=== PATIENT | female | born 1950 | race Caucasian/White ===

== ENCOUNTER 2018-11-22 01:18 | Emergency (ER) | payer MEDICARE ==
[~2018-11-22] VITALS: Ht 152.4 cm; Wt 90.7 kg
--- NOTE | 2018-11-22 01:47 | PHYS DOC ---
Past Medical History Past Medical History: CAD, CVA, Hypertension Past Surgical History: Coronary Bypass Surgery Alcohol Use: None Drug Use: None Adult General Chief Complaint Chief Complaint: SKIN PROBLEM HPI HPI Patient is a 68 year old [f__sex] who presents with [] Review of Systems Review of Systems Constitutional: Denies fever or chills [] Eyes: Denies change in visual acuity, redness, or eye pain [] HENT: Denies nasal congestion or sore throat [] Respiratory: Denies cough or shortness of breath [] Cardiovascular: No additional information not addressed in HPI [] GI: Denies abdominal pain, nausea, vomiting, bloody stools or diarrhea [] : Denies dysuria or hematuria [] Musculoskeletal: Denies back pain or joint pain [] Integument: Denies rash or skin lesions [] Neurologic: Denies headache, focal weakness or sensory changes [] Endocrine: Denies polyuria or polydipsia [] All other systems were reviewed and found to be within normal limits, except as documented in this note. Current Medications Current Medications Current Medications Medications (Trade) Dose Ordered Sig/Iliana Start Time Stop Time Status Last Admin Dose Admin Diphenhydramine HCl (Benadryl) 25 mg 1X ONCE 11/22/18 02:00 11/22/18 02:01 DC Famotidine (Pepcid Vial) 20 mg 1X ONCE 11/22/18 02:00 11/22/18 02:22 DC Famotidine (Pepcid) 20 mg 1X ONCE 11/22/18 03:00 11/22/18 03:01 Methylprednisolone Sodium Succinate (SOLU-Medrol 125MG VIAL) 125 mg 1X ONCE 11/22/18 02:00 11/22/18 02:22 DC Prednisone (Prednisone) 60 mg 1X ONCE 11/22/18 03:00 11/22/18 03:01 Allergies Allergies Allergies Coded Allergies Type Severity Reaction Last Updated Verified alteplase Allergy Severe anaphylaxis 11/22/18 Yes lisinopril Allergy Severe anaphylaxis 11/22/18 Yes oxybutynin Allergy Intermediate 11/22/18 Yes Physical Exam Physical Exam Constitutional: Well developed, well nourished, no acute distress, non-toxic appearance. [] HENT: Normocephalic, atraumatic, bilateral external ears normal, oropharynx moist, no oral exudates, nose normal. [] Eyes: PERRLA, EOMI, conjunctiva normal, no discharge. [] Neck: Normal range of motion, no tenderness, supple, no stridor. [] Cardiovascular:Heart rate regular rhythm, no murmur [] Lungs & Thorax: Bilateral breath sounds clear to auscultation [] Abdomen: Bowel sounds normal, soft, no tenderness, no masses, no pulsatile masses. [] Skin: Warm, dry, no erythema, no rash. [] Back: No tenderness, no CVA tenderness. [] Extremities: No tenderness, no cyanosis, no clubbing, ROM intact, no edema. [] Neurologic: Alert and oriented X 3, normal motor function, normal sensory function, no focal deficits noted. [] Psychologic: Affect normal, judgement normal, mood normal. [] Current Patient Data Vital Signs Vital Signs Date Time Temp Pulse Resp B/P (MAP) Pulse Ox O2 Delivery O2 Flow Rate FiO2 11/22/18 01:35 98.4 84 16 208/102 (137) 98 Room Air 98.4 EKG EKG [] Radiology/Procedures Radiology/Procedures [] Course & Med Decision Making Course & Med Decision Making Pertinent Labs and Imaging studies reviewed. (See chart for details) [] Dragon Disclaimer Dragon Disclaimer This electronic medical record was generated, in whole or in part, using a voice recognition dictation system. Departure Departure Impression: Primary Impression: Contact dermatitis Disposition: 01 HOME, SELF-CARE Condition: STABLE Patient Instructions: Contact Dermatitis, [id number] Additional Instructions: Take medrol dose norma as directed Tylenol or Motrin as needed for pain Benadryl 25mg po every 6 hours as needed Return to the ER with worsening symptoms Doxycycline rx given for underlying cellulitis concern Scripts Diphenhydramine Hcl (BENADRYL) 25 Mg Capsule 25 MG PO Q6-8HRS for 5 Days, CAP Prov: AUDIE RANDOLPH MD 11/22/18 Methylprednisolone (MEDROL) 4 Mg Tab.ds.pk 1 PKG PO UD for inflammation, #1 PKG Prov: AUDIE RANDOLPH MD 11/22/18 Doxycycline Hyclate (DOXYCYCLINE HYCLATE) 100 Mg Capsule 1 CAP PO BID, #14 CAP Prov: AUDIE RANDOLPH MD 11/22/18 Problem Qualifiers Primary Impression: Contact dermatitis Contact dermatitis type: allergic Contact dermatitis trigger: unspecified trigger Qualified Codes: L23.9 - Allergic contact dermatitis, unspecified cause AUDIE RANDOLPH MD Nov 22, 2018 01:47
[2018-11-22] MEDS ORDERED: FAMOTIDINE 20 MG/2 ML VIAL IVP ONE (02:00)
[2018-11-22] MEDS ORDERED: diphenhydrAMINE HCL 25 MG CAPSULE PO ONE (02:00)
[2018-11-22] MEDS ORDERED: methylPREDNISolone SOD SUCC PF 125 MG/2 ML VIAL. IV ONE (02:00)
[2018-11-22] MEDS ORDERED: DIPH25CA58 PO (02:31)
[2018-11-22] MEDS ORDERED: DOXY100C2 PO (02:31)
[2018-11-22] MEDS ORDERED: METH4TAB2 PO (02:31)
[2018-11-22] MEDS ORDERED: FAMOTIDINE 20 MG TABLET. PO ONE (03:00)
[2018-11-22] MEDS ORDERED: predniSONE 20 MG TABLET PO ONE (03:00)
[2018-11-22 04:15] VITALS: BP 188/82
--- NOTE | 2018-11-22 15:13 | PHYS DOC ---
Past Medical History Past Medical History: CAD, CVA, Hypertension Past Surgical History: Coronary Bypass Surgery Alcohol Use: None Drug Use: None Adult General Chief Complaint Chief Complaint: SKIN PROBLEM HPI HPI 68 yo female presents to the ER with complaints of redness and itching to her face. SHe states she was working with plants/garden today and noticed this evening that she began to have redness, swelling and itching appreciated to her face, right side, right ear and some on her left ear. She denies SOB, chest pain, nausea, vomiting, visual disturbance on exam. Review of Systems Review of Systems Constitutional: Denies fever or chills [] Eyes: itchy, no visual changes HENT: Denies nasal congestion or sore throat [] Respiratory: Denies cough or shortness of breath [] Cardiovascular: No additional information not addressed in HPI [] GI: Denies abdominal pain, nausea, vomiting, bloody stools or diarrhea [] Musculoskeletal: Denies back pain or joint pain [] Integument: itching, swelling, edema to face Neurologic: Denies headache, focal weakness or sensory changes [] All other systems were reviewed and found to be within normal limits, except as documented in this note. Current Medications Current Medications Current Medications Medications (Trade) Dose Ordered Sig/Iliana Start Time Stop Time Status Last Admin Dose Admin Diphenhydramine HCl (Benadryl) 25 mg 1X ONCE 11/22/18 02:00 11/22/18 02:01 DC 11/22/18 02:28 25 MG Famotidine (Pepcid Vial) 20 mg 1X ONCE 11/22/18 02:00 11/22/18 02:22 DC Famotidine (Pepcid) 20 mg 1X ONCE 11/22/18 03:00 11/22/18 03:01 DC 11/22/18 02:28 20 MG Methylprednisolone Sodium Succinate (SOLU-Medrol 125MG VIAL) 125 mg 1X ONCE 11/22/18 02:00 11/22/18 02:22 DC Prednisone (Prednisone) 60 mg 1X ONCE 11/22/18 03:00 11/22/18 03:01 DC 11/22/18 02:28 60 MG Allergies Allergies Allergies Coded Allergies Type Severity Reaction Last Updated Verified alteplase Allergy Severe anaphylaxis 11/22/18 Yes lisinopril Allergy Severe anaphylaxis 11/22/18 Yes oxybutynin Allergy Intermediate 11/22/18 Yes Physical Exam Physical Exam Constitutional: Well developed, well nourished, mild distress 2/2 itching/erythe ma, non-toxic appearance. [] HENT: Normocephalic, atraumatic, bilateral external ears normal, oropharynx mo ist, no oral exudates, nose normal. [] Eyes: PERRLA, EOMI Neck: Normal range of motion, no tenderness, supple, no stridor. [] Cardiovascular:Heart rate regular rhythm, no murmur [] Lungs & Thorax: Bilateral breath sounds clear to auscultation [] Abdomen: Bowel sounds normal, soft, no tenderness, no masses, no pulsatile masses. [] Skin: erythema to face, small amount of edema, itching, no obvious vesicles, these areas extend across midline Neurologic: Alert and oriented X 3,no focal deficits noted. [] Psychologic: Affect normal, judgement normal, mood normal. [] Current Patient Data Vital Signs Vital Signs Date Time Temp Pulse Resp B/P (MAP) Pulse Ox O2 Delivery O2 Flow Rate FiO2 11/22/18 04:15 188/82 (117) 11/22/18 01:35 98.4 84 16 98 Room Air 98.4 EKG EKG [] Radiology/Procedures Radiology/Procedures [] Course & Med Decision Making Course & Med Decision Making Pertinent Labs and Imaging studies reviewed. (See chart for details) []68 yo female presents to the ER with complaints of redness and itching to her face. SHe states she was working with plants/garden today and noticed this evening that she began to have redness, swelling and itching appreciated to her face, right side, right ear and some on her left ear. She denies SOB, chest pain, nausea, vomiting, visual disturbance on exam. Discussed with patient - likely contact dermatitis. Benaryl, pepcid, prednison provided. This extends past midline no concern for shingles on exam. Abx provided for underlying developing cellulitis. Recommend continue medrol dose norma and benadryl as needed. Return to the ER with worsening symptoms, SOB, fever. Discussed dc plans. Dragon Disclaimer Dragon Disclaimer This electronic medical record was generated, in whole or in part, using a voice recognition dictation system. Departure Departure Impression: Primary Impression: Contact dermatitis Disposition: 01 HOME, SELF-CARE Condition: STABLE Referrals: NON,STAFF (PCP) Patient Instructions: Contact Dermatitis, [id number] Additional Instructions: Take medrol dose norma as directed Tylenol or Motrin as needed for pain Benadryl 25mg po every 6 hours as needed Return to the ER with worsening symptoms Doxycycline rx given for underlying cellulitis concern Scripts Diphenhydramine Hcl (BENADRYL) 25 Mg Capsule 25 MG PO Q6-8HRS for 5 Days, CAP Prov: AUDIE RANDOLPH MD 11/22/18 Methylprednisolone (MEDROL) 4 Mg Tab.ds.pk 1 PKG PO UD for inflammation, #1 PKG Prov: AUDIE RANDOLPH MD 11/22/18 Doxycycline Hyclate (DOXYCYCLINE HYCLATE) 100 Mg Capsule 1 CAP PO BID, #14 CAP Prov: AUDIE RANDOLPH MD 11/22/18 Problem Qualifiers Primary Impression: Contact dermatitis Contact dermatitis type: allergic Contact dermatitis trigger: unspecified trigger Qualified Codes: L23.9 - Allergic contact dermatitis, unspecified cause AUDIE RANDOLPH MD Nov 22, 2018 15:13
== END 2018-11-22 04:18 | disposition home or self-care (01) ==
LOC: ER 01:18
DX: L23.9 Allergic contact dermatitis, unspecified cause (principal); I10 Essential (primary) hypertension; I25.10 Atherosclerotic heart disease of native coronary artery without angina pectoris; Z86.73 Personal history of transient ischemic attack (TIA), and cerebral infarction without residual deficits; Z88.8 Allergy status to other drugs, medicaments and biological substances
CPT/HCPCS: 99284; J7512; Q0163